=== PATIENT | female | born 1985 | race Caucasian/White ===

== ENCOUNTER 2018-08-04 11:01 | Emergency (ER) | payer MEDICARE, MEDICAID ==
[~2018-08-04] VITALS: Ht 175.3 cm; Wt 73.0 kg
[2018-08-04 11:27] VITALS: BP 116/67
== END 2018-08-04 19:48 | disposition left against medical advice (07) ==
LOC: ER 11:27
DX: R10.33 Periumbilical pain (principal); R11.2 Nausea with vomiting, unspecified; Z53.21 Procedure and treatment not carried out due to patient leaving prior to being seen by health care provider
CPT/HCPCS: 81025